=== PATIENT | male | born 1960 | race Caucasian/White ===

== ENCOUNTER 2023-02-18 20:34 | Emergency (ER) | payer OTHER ==
[2023-02-18 20:42] VITALS: BP 160/88; PULSE 91; RESP 20; TEMP 98.5; BMI 26.2
[2023-02-18] MEDS ORDERED: CLINDAMYCIN 600MG PREMIX IVPB 600 MG/50 ML BAG IVPB ONE (21:45)
[2023-02-18 23:08] LABS: BASO % 0.8 % (0-2.0); EOS % 2.9 % (0-4.5); HEMATOCRIT 46.1 % (35.4-49); HEMOGLOBIN 15.6 GM/dL (11.7-16.9); LYMPH % 29.6 % (8-40); MCH 30.2 pg (25.7-33.7); MCHC 33.8 g/dl (32.0-35.9); MEAN CELL VOLUME 89.3 fl (80-96); MEAN PLT VOLUME 7.1 fl (7.5-11.1); MONO % 16.9 % (3.8-10.2); NEUT % 49.8 % (42.8-82.8); PLATELET COUNT 276 10^3/uL (134-434); RBC 5.16 M/mm3 (4.00-5.60); RDW 12.9 % (11.9-15.9); WHITE BLOOD COUNT 6.1 K/mm3 (4.0-10.0)
[2023-02-18 23:34] LABS: POTASSIUM 4.5 mmol/L (3.5-5.1)
[2023-02-18 23:36] LABS: BLOOD UREA NITROGEN 13.2 mg/dL (7-18); CALCIUM 9.2 mg/dL (8.5-10.1)
[2023-02-18 23:40] LABS: CREATININE 0.8 mg/dL (0.55-1.3)
[2023-02-18 23:41] LABS: TOT PROT 7.6 g/dl (6.4-8.2)
[2023-02-18 23:44] LABS: BILIRUBIN,TOTAL 0.6 mg/dL (0.2-1)
== END 2023-02-18 23:58 | disposition home or self-care (01) ==
LOC: JER 20:34
DX: L03.313 Cellulitis of chest wall (principal)
CPT/HCPCS: 36415; 80053; 85025; 87040; 99284-25

== ENCOUNTER 2024-04-17 16:36 | Emergency (ER) | payer OTHER ==
[2024-04-17 16:49] VITALS: BP 145/96; PULSE 69; RESP 18; TEMP 98.8; BMI 25.7
== END 2024-04-17 17:39 | disposition home or self-care (01) ==
LOC: JERFT 16:36
DX: R21 Rash and other nonspecific skin eruption (principal)
CPT/HCPCS: 99283-25